=== PATIENT | male | born 1965 | race Caucasian/White ===

== ENCOUNTER 2017-02-13 14:18 | Emergency (ER) | payer OTHER ==
[2017-02-13] MEDS ORDERED: diphenhydrAMINE HCL 50 MG/ML VIAL ONE (14:27)
[2017-02-13] MEDS ORDERED: methylPREDNISolone SOD SUCC 125 MG/2 ML VIAL IVP ONE (14:27)
[2017-02-13] MEDS ORDERED: diphenhydrAMINE HCL 50 MG/ML VIAL IVP ONE (14:27)
[2017-02-13] MEDS ORDERED: methylPREDNISolone SOD SUCC 125 MG/2 ML VIAL ONE (14:27)
--- NOTE | 2017-02-13 15:00 | ED Physician Documentation ---
General Adult - HISTORIAN Historian: patient - HPI Stated Complaint: ? Allergic Reaction Chief Complaint: Allergic Reaction Onset: minutes (20) Timing: still present Severity: severe Further Comments: yes (Patient states that he was stung by something, he is not sure what. Shortly thereafter he started to developed itching and whole body hives. He denies any tongue or throat swelling or SOB/wheezing. He has never had a similar response.) - ROS CONST: no problems. denies: fever, chills - PAST HX Past History: hypertension Allergies/Adverse Reactions: Allergies Allergy/AdvReac Type Severity Reaction Status Date / Time No Known Allergies Allergy Unverified 02/13/17 14:38 Home Medications: Ambulatory Orders Medication Instructions Recorded Blood Pressure Med 02/13/17 Epinephrine [Epipen 2-Jesse] 0.3 mg IM 1T #2 each 02/13/17 Methylprednisolone [Medrol] 4 mg PO DIRECTED #21 tablet 02/13/17 - SOCIAL HX Smoking History: non-smoker Alcohol Use: none Drug Use: none - FAMILY HX Family History: No - VITAL SIGNS Vital Signs: Vital Signs Temp Pulse Resp BP Pulse Ox 98.1 F 115 H 18 142/88 99 02/13/17 14:20 02/13/17 14:20 02/13/17 14:20 02/13/17 14:20 02/13/17 14:20 - REVIEWED ASSESSMENTS Nursing Assessment Reviewed: Yes Vitals Reviewed: Yes Progress - Progress Progress: 15:08 Has bben sleeping, having some itching still, no mouth or throat swelling, no wheezing noted. Hive on face are staring to improve. 16:00 Hives are improving, no respiratory problems ED Results Lab/Radiology - Orders Orders: ED Orders Category Date Time Status diphenhydrAMINE HCL [Benadryl] Med 02/13/17 14:27 Discontinued 50 mg .ROUTE .STK-MED ONE diphenhydrAMINE HCL [Benadryl] Med 02/13/17 14:27 Discontinued 50 mg IVP NOW ONE methylPREDNISolone SOD SUCC [Solu-MEDROL] Med 02/13/17 14:27 Discontinued 125 mg .ROUTE .STK-MED ONE methylPREDNISolone SOD SUCC [Solu-MEDROL] Med 02/13/17 14:27 Discontinued 125 mg IVP NOW ONE General Adult Physical Exam - PHYSICAL EXAM GENERAL APPEARANCE: mild distress EENT: other (no tongue or oral cavity swelling or erythema noted. ) RESPIRATORY: no resp distress, chest non-tender, breath sounds normal. No: wheezes, rales CVS: reg rate & rhythm, heart sounds normal, equal pulses, no murmur, no gallop ABDOMEN: soft, no organomegaly, normal bowel sounds, no abdominal bruit, no distension SKIN: other (extensive hive over the facial, trunk, and upper extremities, to a less extent to the lower extremities) NEURO: oriented X3, CN's nml as tested, motor nml, sensation nml, mood/affect nml Discharge Clincal Impression: Hives Prescriptions: Epinephrine [Epipen 2-Jesse] 0.3 mg IM 1T #2 each Methylprednisolone [Medrol] 4 mg PO DIRECTED #21 tablet Referrals: Primary Doctor,No [Primary Care Provider] - 2 Days Additional Instructions: Take medrol as directed. Take benadryl and / or ranitidine as instructed to do so. Use Epi pen if needed as instructed. Follow-up with your primary care provider . Return to the ED if needed. Condition: Stable Disposition: 01 HOME, SELF-CARE Decision to Admit: NO Date of Decison to Admit: 02/13/17 Decision Time: 16:01
[2017-02-13] MEDS ORDERED: FAMOTIDINE/PF 20 MG/2 ML VIAL IVP ONE (15:37)
[2017-02-13 16:23] VITALS: BP 122/92
== END 2017-02-13 16:22 | disposition home or self-care (01) ==
LOC: ED 14:18
DX: L50.9 Urticaria, unspecified (principal)
CPT/HCPCS: J1200; J2930; 96374; 96375; 99283; S0028; S1016